=== PATIENT | male | born 1970 | race Caucasian/White ===

== ENCOUNTER → 2016-10-22 | Outpatient (CLI) | payer BC, OTHER | LOC: ULTRA 07:49 | DX: R16.0 Hepatomegaly, not elsewhere classified (principal); K83.1 Obstruction of bile duct; R10.11 Right upper quadrant pain ==

== ENCOUNTER → 2017-02-14 | Outpatient (CLI) | payer OTHER | LOC: CAT 07:47 | DX: Z13.6 Encounter for screening for cardiovascular disorders (principal) ==

== ENCOUNTER → 2019-07-02 | Outpatient (CLI) | payer OTHER | LOC: CAT 07:46 | DX: Z13.6 Encounter for screening for cardiovascular disorders (principal); E78.00 Pure hypercholesterolemia, unspecified; I25.10 Atherosclerotic heart disease of native coronary artery without angina pectoris ==

== ENCOUNTER → 2020-01-01 | Outpatient (CLI) | payer BC, OTHER | LOC: LAB 08:00 | PROVIDERS: ATTEND Neuromusculoskeletal Medicine & OMM | DX: R51 Headache (principal); R68.83 Chills (without fever); R19.7 Diarrhea, unspecified; Z20.828 Contact with and (suspected) exposure to other viral communicable diseases ==

== ENCOUNTER → 2020-04-21 | Outpatient (CLI) | payer BC, OTHER | LOC: LAB 08:08 | PROVIDERS: ATTEND Internal Medicine Cardiovascular Disease | DX: Z20.828 Contact with and (suspected) exposure to other viral communicable diseases (principal) ==

== ENCOUNTER → 2020-08-01 | Outpatient (CLI) | payer BC, OTHER | LOC: SJCVCIMAG 12:38 | PROVIDERS: ATTEND Internal Medicine Cardiovascular Disease | DX: R06.09 Other forms of dyspnea (principal); I10 Essential (primary) hypertension; R93.1 Abnormal findings on diagnostic imaging of heart and coronary circulation ==

== ENCOUNTER → 2021-02-08 | Outpatient (CLI) | payer BC, OTHER | LOC: SJCVCIMAG 12:35 | PROVIDERS: ATTEND Internal Medicine Cardiovascular Disease | DX: I65.23 Occlusion and stenosis of bilateral carotid arteries (principal) ==